=== PATIENT | female | born 1940 | race Caucasian/White ===

== ENCOUNTER → 2016-05-09 | Outpatient (CLI) | payer MEDICARE, OTHER ==
--- NOTE | 2016-05-09 09:22 | RAD ---
EXAM DESCRIPTION: XR HIP 2 OR MORE VIEWS CLINICAL HISTORY: HIP PAIN COMPARISON: None Available. TECHNIQUE: AP/frog leg lateral FINDINGS: There is no bone, joint, or soft tissue abnormality. IMPRESSION: Normal left hip Electronically signed by: David Tinsley MD 05/09/2016 09:20
--- NOTE | 2016-05-09 09:23 | RAD ---
EXAM DESCRIPTION: XR PELVIS 1-2 VIEWS CLINICAL HISTORY: PELVIC PAIN COMPARISON: None Available. TECHNIQUE: AP pelvis FINDINGS: Mild degenerative changes are observed the lower lumbar spine. Mild degenerative changes are observed in the sacroiliac joints. The proximal femurs are normal. Small phleboliths are observed in the pelvis. No lytic or blastic abnormality is seen. IMPRESSION: Mild degenerative changes are observed in the sacroiliac joints and lower lumbar spine. Exam is otherwise unremarkable. Electronically signed by: David Tinsley MD 05/09/2016 09:21
== END ==
LOC: RAD 07:49
PROVIDERS: ATTEND Orthopaedic Surgery
DX: M25.552 Pain in left hip (principal); M12.88 Other specific arthropathies, not elsewhere classified, other specified site

== ENCOUNTER → 2016-08-21 | Outpatient (CLI) | payer MEDICARE, OTHER ==
--- NOTE | 2016-08-21 19:05 | US ---
EXAM DESCRIPTION: Venous, lower Extremity RT, CLINICAL HISTORY: 76 years, Female, DVT pain COMPARISON: The right common femoral, superficial femoral, deep femoral, popliteal, posterior tibial and peroneal veins identified. Appropriate flow compressibility and augmentation. IMPRESSION: No evidence deep venous thrombosis right lower extremity. Electronically signed by: Ayush Tobias MD 08/21/2016 7:05 PM CDT
--- NOTE | 2016-08-21 19:06 | US ---
EXAM DESCRIPTION: Venous,Lower Extremity LT CLINICAL HISTORY: 76 years, Female, DVT pain and swelling COMPARISON: None. FINDINGS: The left common femoral, superficial femoral, deep femoral, popliteal, posterior tibial and peroneal veins identified. Appropriate flow compressibility and augmentation. IMPRESSION: No evidence deep venous thrombosis left lower extremity. Electronically signed by: Ayush Tobias MD 08/21/2016 7:05 PM CDT
== END | disposition home or self-care (01) ==
LOC: US 13:34
DX: I82.403 Acute embolism and thrombosis of unspecified deep veins of lower extremity, bilateral (principal)

== ENCOUNTER → 2017-02-09 | Outpatient (CLI) | payer MEDICARE, OTHER ==
--- NOTE | 2017-02-12 06:24 | MRI ---
Procedure: MR BRAIN WITHOUT IV CONTRAST Exam Date: 02/09/2017 12:00 AM CDT Ordering Provider: Justice Riggins Clinical Indication: ACUTE CONFUSION Comparison: Head CT 12/07/2013 Technique: Multiplanar MRI of the brain was obtained without. the administration of IV contrast. Findings: scattered restricted diffusion seen within the periventricular white matter of the posterior right temporal lobe and right occipital lobe. There is also involvement of the posterior limb right internal capsule as well as right aspect of the splenule of the corpus callosum. 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 Ventricular size and configuration are normal. There is no midline shift or hydrocephalus. There is no parenchymal hemorrhage. The pituitary gland is normal in size. There are no pineal masses. There are normal intracranial vascular flow voids. The foramen magnum is normal. There is normal signal within the paranasal sinuses. The orbits are intact. IMPRESSION: 1. Scattered predominately subcortical regions of acute infarction seen within the right COMPLIANCE COORDINATOR vascular distribution. No evidence of acute intracranial hemorrhage, mass effect, midline shift, or hydrocephalus. 2. Microvascular ischemic changes. Electronically signed by: Claude Serrato MD 02/12/2017 6:23 AM CDT
== END | disposition home or self-care (01) ==
LOC: MRI 14:41
PROVIDERS: ATTEND Family Medicine
DX: I63.9 Cerebral infarction, unspecified (principal); R51 Headache

== ENCOUNTER → 2017-04-09 | Outpatient (CLI) | payer MEDICARE, OTHER ==
--- NOTE | 2017-04-09 16:23 | RAD ---
EXAM DESCRIPTION: Hip,Left 2 Views CLINICAL HISTORY: HIP PAIN COMPARISON: May 09, 2016 TECHNIQUE: AP/frog leg lateral FINDINGS: Left hip appears intact. The bones are well-mineralized. No fracture or deformity is seen. No dislocation or severe degenerative change seen. IMPRESSION: Negative left hip two views Electronically signed by: Christian Phan MD 04/09/2017 4:22 PM [facility]
--- NOTE | 2017-04-09 16:24 | RAD ---
EXAM DESCRIPTION: Pelvis CLINICAL HISTORY: 76 years Female, HIP PAIN COMPARISON: May 09, 2016 FINDINGS: Single view of the pelvis demonstrates the bony pelvic ring is intact. Lower lumbar degenerative disc disease at L4-5 and L5-S1 is noted. No pelvic fracture or deformity or soft tissue mass noted. IMPRESSION: Negative pelvis one view. Electronically signed by: Christian Phan MD 04/09/2017 4:23 PM [employer] DELIVERY [employer]
== END | disposition home or self-care (01) ==
LOC: RAD 08:59
PROVIDERS: ATTEND Orthopaedic Surgery
DX: M25.552 Pain in left hip (principal)

== ENCOUNTER → 2019-03-06 | Outpatient (CLI) | payer MEDICARE, OTHER ==
--- NOTE | 2019-03-06 11:41 | RAD ---
Single radiograph pelvis. 2 radiographs left hip. Indication: PAIN IN LEFT HIP Comparison: April 09, 2017 Impression: No acute fracture the pelvis or left hip identified. Evaluation for fracture is limited given the degree of osteopenia. If high clinical concern for acute fracture, correlation with MRI recommended given its greater sensitivity in the osteopenic patient. If the patient cannot tolerate MRI imaging or more urgent imaging is required, CT could be performed, however it is less sensitive in the osteopenic patient when compared to MRI. Mild bilateral hip osteoarthritis with joint space narrowing and minimal osteophyte formation. Mild pubic symphysis osteoarthritis. Lower lumbar disc disease. 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 Osteopenia. If this is a new finding, DEXA scan recommended as well as evaluation for possible osteoporosis treatment. Electronically signed by: Rohit Nascimento MD 03/06/2019 11:40 AM [facility]
== END ==
LOC: RAD 10:20
PROVIDERS: ATTEND Orthopaedic Surgery
DX: M16.0 Bilateral primary osteoarthritis of hip (principal); M47.898 Other spondylosis, sacral and sacrococcygeal region; M51.36 Other intervertebral disc degeneration, lumbar region; M85.88 Other specified disorders of bone density and structure, other site

== ENCOUNTER → 2019-04-21 | Outpatient (CLI) | payer MEDICARE, OTHER ==
--- NOTE | 2019-04-21 09:05 | RAD ---
EXAM DESCRIPTION: Pelvis CLINICAL HISTORY: 78 years Female, HIP PAIN COMPARISON: March 06, 2019 FINDINGS: Single view of the pelvis demonstrates no fracture or dislocation of the left or right hip region. Each superior and inferior pubic ramus appears intact. The SI joints are normal in appearance. Mild degenerative arthropathy is present at the symphysis and to a lesser degree the hips. No evidence of osteonecrosis of either hip noted. IMPRESSION: Mild degenerative changes involving the pelvis with no acute abnormality noted. Moderate degenerative spine disease lower lumbar spine also noted. Electronically signed by: Christian Phan MD 04/21/2019 9:03 AM [facility]
--- NOTE | 2019-04-21 09:07 | RAD ---
EXAM DESCRIPTION: Knee,Right Complete CLINICAL HISTORY: 78 years, Female, KNEE PAIN COMPARISON: None TECHNIQUE: Four views right knee FINDINGS: Four views of the right knee demonstrate slight thickening of the soft tissues in the suprapatellar region suggesting a mild synovitis or minimal joint effusion. Very mild osteoarthritic changes with marginal osteophyte formation particularly at the superior patellar margin noted. Bones appear mildly osteopenic. No fracture or dislocation or significant joint space narrowing noted. IMPRESSION: 1. Mild degenerative right knee with no acute abnormalities noted. Electronically signed by: Christian Phan MD 04/21/2019 9:[address] [facility]
== END ==
LOC: RAD 07:42
PROVIDERS: ATTEND Orthopaedic Surgery
DX: M16.0 Bilateral primary osteoarthritis of hip (principal); M47.896 Other spondylosis, lumbar region; M17.11 Unilateral primary osteoarthritis, right knee

== ENCOUNTER → 2019-10-10 | Outpatient (CLI) | payer MEDICARE, OTHER | LOC: MAMMO 10:36 | PROVIDERS: ATTEND Family Medicine | DX: Z12.31 Encounter for screening mammogram for malignant neoplasm of breast (principal) ==

== ENCOUNTER → 2020-01-14 | Outpatient (CLI) | payer MEDICARE, OTHER ==
--- NOTE | 2020-01-14 15:53 | MRI ---
EXAM DESCRIPTION: Brain w/o Contrast: MRI. CLINICAL HISTORY: COMPLICATED MIGRAINE COMPARISON: MRI scan of the brain without contrast January 2017 TECHNIQUE: Multiplanar, high-field MRI unit, multiple diffusion sequences, multiple conventional sequences without contrast. FINDINGS: Multifocal bilateral hyperintense FLAIR and T2-weighted signal in the periventricular white matter and sub-cortical white matter most of the cerebral with relative sparing of the temporal lobes. Most of the subcortical lesions at the levels of the ventricles or more superior.. No hemorrhage, no cerebral edema, no midline shift.. Normal signal in the bilateral basal ganglia. Normal signal in the brainstem and cerebellar hemispheres.. Concordance of the diffusion and non-diffusion sequences with no diffusion restriction. Focal areas of diffusion restriction seen abutting the right posterior lateral ventricle and occipital horn and in the right temporal lobe on the prior study are not visualized. Faint central hyperintense B 1000 diffusion signature in the central lizzie is stable. Cortical sulci, ventricles, and other CSF spaces, and the subdural spaces are normally configured for patients age. No effacement or displacement. No midline shift. No extra-axial hemorrhage. Normal flow signal void in the major vessels of the [place], and the venous sinuses. IACs are symmetric bilaterally. Normal signal in the bilateral mastoid air cells. No mass effect in the bilateral cerebellopontine angles. Pituitary gland occupies most of the sella. Base of the cerebellar tonsils is at the level of the foramen magnum. Minimal mucoperiosteal thickening in the paranasal sinuses. Kacey bullosa right middle turbinate. Right septal deviation. Stable from the prior study.. The bony calvarium is intact. IMPRESSION: 1. Regions of diffusion restriction seen on the prior study in the right temporal lobe and parietal lobe abutting the ventricle and the occipital horn have resolved. No new regions are sites of diffusion restriction. No hemorrhage or encephalomalacia. 2. Bilateral multifocal white matter disease involving the periventricular white matter and subcortical white matter are stable since the prior study. No hemorrhage, no mass effect, no midline shift. No extra-axial fluid or hemorrhage. Electronically signed by: Fran Ortega MD 01/14/2020 3:52 PM CDT
== END ==
LOC: MRI 09:52
PROVIDERS: ATTEND Family Medicine
DX: G43.109 Migraine with aura, not intractable, without status migrainosus (principal); R90.82 White matter disease, unspecified